=== PATIENT | male | born 1980 | race Caucasian/White ===

== ENCOUNTER 2016-12-17 10:55 | Emergency (ER) | payer OTHER ==
[~2016-12-17] VITALS: Ht 177.8 cm; Wt 65.0 kg
[2016-12-17 10:58] VITALS: Ht 177.8 cm; Wt 65.0 kg
[2016-12-17] MEDS ORDERED: ONDANSETRON 4 MG INJ IV STA ×2 (11:16→15:18)
[2016-12-17] MEDS ORDERED: morphine 4 MG/ML VIAL IV STA ×2 (11:16→15:18)
[2016-12-17 11:45] LABS: BASOPHILS % 0.7 % (0.0-2.0); EOSINOPHILS # 0.2 10^3/ul (0.0-0.5); EOSINOPHILS % 3.6 % (0.0-7.0); HEMATOCRIT 46.1 % (42.0-52.0); HEMOGLOBIN 16.3 g/dl (14.0-18.0); LYMPHOCYTES # 2.3 10^3/ul (0.8-2.9); LYMPHOCYTES % 39.5 % (15.0-51.0); MEAN CORPUSCULAR HEMOGLOBIN 33.3 pg (29.0-33.0); MEAN CORPUSCULAR HGB CONC 35.4 g/dl (32.0-37.0); MEAN CORPUSCULAR VOLUME 94.1 fl (82.0-101.0); MEAN PLATELET VOLUME 9.8 fl (7.4-10.4); MONOCYTE # 0.6 10^3/ul (0.3-0.9); MONOCYTES % 9.8 % (0.0-11.0); NEUTROPHIL # 2.7 10^3/ul (1.6-7.5); NEUTROPHILS % 46.1 % (39.0-77.0); PLATELET COUNT 272 10^3/UL (140-415); RED CELL DISTRIBUTION WIDTH 11.9 % (11.5-14.5); WHITE BLOOD COUNT 5.8 10^3/ul (4.8-10.8)
[2016-12-17 12:00] LABS: INR 0.85; PROTIME 11.6 Sec (12.2-14.2); PT RATIO 0.9
[2016-12-17 12:01] LABS: PARTIAL THROMBOPLASTIN TIME 25.7 Sec (25.0-35.0)
[2016-12-17 12:04] LABS: ALBUMIN 4.7 g/dl (3.3-4.9); ALBUMIN/GLOBULIN RATIO 1.8; BILIRUBIN,INDIRECT 0.1 mg/dl (0-1.1); BILIRUBIN,TOTAL 0.1 mg/dl (0.2-1.3); CALCIUM 9.6 mg/dl (8.4-10.2); CREATININE 0.81 mg/dl (0.61-1.24); TOTAL PROTEIN 7.3 g/dl (6.1-8.1)
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
[2016-12-17] MEDS ORDERED: SOD CHLORIDE 0.9% 100 ML ONE (12:25)
[2016-12-17] MEDS ORDERED: IOHEXOL 300MG/ML 150 ML BTL ONE (12:25)
[2016-12-17] MEDS ORDERED: SOD CHLORIDE 0.9% 1,000 ML IV STA (12:32)
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
[2016-12-17] MEDS ORDERED: KETOROLAC 30 MG INJ IV STA (15:15)
[2016-12-17] MEDS ORDERED: HYDR-906 PO (15:43)
[2016-12-17 16:13] VITALS: BP 165/96; PULSE 51; RESP 20
== END 2016-12-17 16:15 | disposition home or self-care (01) ==
LOC: E/R 10:55
DX: S29.9XXA Unspecified injury of thorax, initial encounter (principal); F17.210 Nicotine dependence, cigarettes, uncomplicated; R07.89 Other chest pain; V89.2XXA Person injured in unspecified motor-vehicle accident, traffic, initial encounter
CPT/HCPCS: 71250; 74177; 80053; 82150; 83690; 85025; 85610; 85730; J1885; J2270; J2405; J7030; Q9967; 36415; 96374; 96375; 96376